=== PATIENT | female | born 1985 | race Caucasian/White ===

== ENCOUNTER 2018-07-29 01:06 | Day surgery (SDC) | payer MEDICAID ==
[~2018-07-29] VITALS: Ht 162.6 cm; Wt 129.3 kg
[2018-07-29] VITALS (7 sets, daily range): BP systolic 91–124; BP diastolic 58–84
[~2018-07-29 01:06] MED LIST: ACET500T68 PO; HYDR-385 PO; OXYC-865 PO
[2018-07-29] MEDS ORDERED: ROPIVACAINE 0.2% 20 ML VIAL ONE (06:40)
[2018-07-29] MEDS ORDERED: LIDOCAINE/SOD BICARB 8.4% SYR ID ONE (06:45)
[2018-07-29] MEDS ORDERED: CELECOXIB 200 MG CAP PO ONE (06:45)
[2018-07-29] MEDS ORDERED: FAMOTIDINE 20 MG TAB PO ONE (06:45)
[2018-07-29] MEDS ORDERED: NORMOSOL R SOLN(*) 1000 ML BAG 1,000 ML IV PRN (06:45)
[2018-07-29] MEDS ORDERED: MIDAZOLAM 2 MG/2 ML VIAL IVP PRN (06:45)
[2018-07-29] MEDS ORDERED: ceFAZolin(*) 2GM/D5W 50ML 50 ML IVPB ONE (06:45)
[2018-07-29] MEDS ORDERED: fentaNYL CITR 250 MCG/5 ML AMP ONE (07:05)
[2018-07-29] MEDS ORDERED: DEXAMETHASONE SOD PHOS 10MG/ML ONE (07:06)
[2018-07-29] MEDS ORDERED: GLYCOPYRROLATE 1 MG/5 ML INJ ONE (07:06)
[2018-07-29] MEDS ORDERED: LIDOCAINE MPF 1% 5 ML VIAL ONE (07:06)
[2018-07-29] MEDS ORDERED: PROPOFOL EMUL(*) 10MG/ML 20 ML 40 ML ONE (07:06)
[2018-07-29] MEDS ORDERED: LIDOCAINE 2% JELLY 5 ML TUBE ONE (07:11)
[2018-07-29] MEDS ORDERED: KETAMINE HCL 200 MG/20 ML MDV ONE (07:11)
[2018-07-29] MEDS ORDERED: KETOROLAC 30 MG/ML VIAL ONE (09:18)
--- NOTE | 2018-07-29 10:13 | OPERATIVE REPORT 1 ---
EVENT DATE: July 29, 2018 SURGEON: Dave Vega MD ANESTHESIOLOGIST: Lisandro Sanchez MD ANESTHESIA: General LMA. 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 PROCEDURE PERFORMED Hardware removal of implant deep of the plates and screws of the left radial head and subsequent removal of the radial head and radial head replacement with hemiarthroplasty prosthesis. FINDINGS Nonunion of the radial head and neck fracture. ESTIMATED BLOOD LOSS Minimal. DRAINS None. IMPLANTS USED [employer] radial head replacement with size 7 shaft and 22 head. SPECIMENS None. TOURNIQUET TIME 75 minutes. INDICATIONS AND HISTORY This patient is a 32-year-old female who presented to my clinic for evaluation of left arm pain associated with a comminuted radial head fracture where he underwent open reduction and internal fixation back in the summer of 2016. She had done pretty well but then started to have more pain and irritation and it went on to a nonunion so, therefore, she wanted to go from open reduction and internal fixation to radial head replacement. We went over the risks and benefits associated with this. She understood she is very young to have this but it is the other alternative we have so, therefore, we went over the aspects of that and inform consent was obtained at the last clinic visit. DESCRIPTION OF PROCEDURE The patient was brought into the operating room. She and the procedure were both verified. She was placed supine on the operating table and induced intubated by anesthesia. The left upper extremity was then prepped and draped in the usual fashion. A time-out was observed, verifying the correct patient and procedure. The standard incision was made over the lateral aspect of the arm through the old incision that I had made previously through the skin and subcutaneous tissue after inflation of the tourniquet and I was able to go through the skin and subcutaneous tissue and get down onto the extensor tendon mass and then go through the extensor tendon mass without any major difficulty. Once I was able to do this, I was then able to expose the plate itself and once I was able to expose the plate I was able to remove all of the screws associated with the plate and remove the plate itself. I then removed the two screws out of the radial head that were independent lag screws and then remove the radial head itself. Unfortunately, the radial head did fall apart as we did this as it did have a lot of adhesions but once we were able to remove it there were no signs of further issues associated with the capitellar joint. I then freshened the cut on the radial neck to make it amendable for the [employer] radial head replacement. This was done followed by broaching of the canal of the radius with a size 7. Once we were able to get the size [address], I then put in a 7 trial with a 22 trial head, took C-arm images and found it to have good stability as well as motion associated so, therefore, this was the final construct chosen. I then irrigated with copious amount of saline, which we had done throughout the entire case, and then put in the final radial shaft implant followed by the radial head. We then used the ulnar alignment sherri to then make sure it was aligned for length and also that it was aligned straight on with the ulna and then tightened up the said screw without any difficulty. I then took final x-rays and full range of motion. There were no signs of catching or locking associated with it and had excellent stability associated with it so, therefore, it was irrigated again and the capsule was closed with a #2 FiberWire. We then irrigated again and closed the extensor tendon mass with a 2-0 Vicryl followed by 3-0 Vicryl in the subcutaneous tissue and then a 4-0 Monocryl in the skin. The wound was then anesthetized with ropivacaine and then dressed with steri-strips, gauze, 4x4s and a soft dressing followed by a posterior splint. The patient was awakened, extubated and transferred to PACU in stable condition. The tourniquet was let down after about 75 minutes. KATE
[2018-07-29] MEDS ORDERED: fentaNYL CITR 100 MCG/2 ML AMP ONE (10:16)
[2018-07-29] MEDS ORDERED: HYDR-653 PO (10:19)
[2018-07-29] MEDS ORDERED: APAP/HYDROCODONE 325/5 TAB PO ONE (11:45)
== END 2018-07-29 10:50 | disposition home or self-care (01) ==
LOC: OR 01:06
PROVIDERS: ATTEND Orthopaedic Surgery
DX: S52.122A Displaced fracture of head of left radius, initial encounter for closed fracture (principal)
CPT/HCPCS: 24370; 36415; 76000; 84703; A4565; C1776; J1100; J1885; J2001; J2250; J2704; J2795; J3010; J3490; J0690